=== PATIENT | male | born 1965 | race Caucasian/White ===

== ENCOUNTER 2016-10-24 00:20 | Emergency (ER) | payer OTHER ==
[2016-10-24] MEDS ORDERED: Lidocaine 1% with EPINEPHrine 1:100,000 20 ML MDV INFILT ONE (00:38)
--- NOTE | 2016-10-24 00:40 | EDM.PDOC ---
ED HPI GENERAL MEDICAL PROBLEM - General Chief Complaint: Laceration Stated Complaint: hit head; cut to scalp; no LOC Time Seen by Provider: 10/24/16 00:23 Source of Information: Reports: Patient, Police, RN, RN Notes Reviewed History Limitations: Reports: No Limitations - History of Present Illness INITIAL COMMENTS - FREE TEXT/NARRATIVE: Patient is brought to the ED at [facility] by the deputy chief sheriff's department after the patient sustained a laceration to the scalp/parietal area. Patient states he was getting out of bed when he hit his head on the the bunk above. Patient denies any LOC. No visual field disturbances. Mild pain to left side of head around affected area. No other concerns. Onset Date: 10/23/16 - Related Data Allergies Allergy/AdvReac Type Severity Reaction Status Date / Time No Known Allergies Allergy Verified 10/24/16 00:36 Home Meds: Home Meds . [No Known Home Meds] 10/24/16 [History] Review of Systems - Review of Systems Review Of Systems: See Below Constitutional: Denies: Chills, Fever, Weakness Eyes: Reports: No Symptoms Ears: Reports: No Symptoms Nose: Reports: No Symptoms Mouth/Throat: Reports: No Symptoms Respiratory: Denies: Shortness of Breath, Cough Cardiovascular: Denies: Chest Pain, Lightheadedness Skin: Reports: Wound (laceration to left scalp) Neurological: Reports: No Symptoms. Denies: Dizziness, Headache, Numbness, Paresthesia, Tingling ED EXAM, GENERAL - Physical Exam Exam: See Below Exam Limited By: No Limitations General Appearance: Alert, No Apparent Distress Eye Exam: Bilateral Eye: Normal Inspection, PERRL Ears: Normal External Exam, Normal Canal, Normal TMs Ear Exam: Bilateral Ear: TM normal Nose: Normal Inspection, No Blood Throat/Mouth: Normal Inspection, Normal Oropharynx, No Airway Compromise Head: Normocephalic, Other (3cm laceration to left scalp) Neck: Normal Inspection, Non-Tender Respiratory/Chest: No Respiratory Distress, Lungs Clear, Normal Breath Sounds Cardiovascular: Regular Rate, Rhythm Neurological: Alert, Oriented Skin Exam: Warm, Dry, Normal Color, No Rash, Other (3cm laceration to left scalp ; low grade venous ooze; clean wound) ED TRAUMA PROCEDURES - Laceration/Wound Repair Left Head Lac/Wound Length In cm: 3 Appearance: Subcutaneous, Linear, Clean Distal NVT: Neuro & Vascular Intact Anesthetic Type: Local Local Anesthesia - Lidocaine (Xylocaine): 1% With EPI Local Anesthetic Volume: 5cc Skin Prep: Chlorhexidine (Hibiciens), Saline Saline Irrigation (cc's): 100 Exploration/Debridement/Repair: Wound Explored, in a Bloodless Field, Explored to Base, No Foreign Material Found, Wound Margins Revised Closed With: Sabine # of Sutures: 7 Sterile Dressing Applied: Nurse Tetanus Status Addressed: Yes Complications: No Course - Vital Signs Last Recorded V/S: Last Vital Signs Temp 36.5 C 10/24/16 00:39 Pulse 67 10/24/16 00:39 Resp 18 10/24/16 00:39 BP 141/82 H 10/24/16 00:39 Pulse Ox 94 L 10/24/16 00:39 - Orders/Labs/Meds Meds: Medications Discontinued Medications Generic Name Dose Route Start Last Admin Trade Name Sam PRN Reason Stop Dose Admin Lidocaine/Epinephrine 20 ml 10/24/16 00:38 Xylocaine 1% With Epinephrine 1:100,000 INFILT 10/24/16 00:39 ONETIME ONE Departure - Departure Time of Disposition: 00:51 Disposition: Home, Self-Care 01 Condition: Good Clinical Impression: Scalp laceration Qualifiers: Encounter type: initial encounter Qualified Code(s): S01.01XA - Laceration without foreign body of scalp, initial encounter - Discharge Information Instructions: Laceration Care, Adult, Stitches, Sabine, or Adhesive Wound Closure Forms: ED Department Discharge Additional Instructions: 1. Stay well hydrated and rest 2. May alternate Tylenol/Advil as needed for pain 3. Keep area clean and dry 4. May shower/bathe as usual 5. Staple to be removed in 10 days - Problem List Review Problem List Initiated/Reviewed/Updated: Yes
== END 2016-10-24 00:55 | disposition home or self-care (01) ==
LOC: VM.ED 00:20
DX: S01.01XA Laceration without foreign body of scalp, initial encounter (principal); W22.8XXA Striking against or struck by other objects, initial encounter
CPT/HCPCS: 12002; 12032; 99283; 99283-GF-25